=== PATIENT | female | born 1945 | race Caucasian/White ===

== ENCOUNTER → 2021-06-02 | Outpatient (CLI) | payer MEDICARE ==
[~2021-06-02] MED LIST: ALPRAZOLAM0.5 MG PO; ASPIRIN EC81 MG PO; PRILOSEC OTC20 MG PO; PROZAC20 MG PO; REQUIP1 MG PO; SYNTHROID100 MCG PO; ZOCOR20 MG PO
== END ==
LOC: EXRD 13:00
DX: R09.89 Other specified symptoms and signs involving the circulatory and respiratory systems (principal); I65.23 Occlusion and stenosis of bilateral carotid arteries
CPT/HCPCS: 93880